=== PATIENT | male | born 1945 | race Caucasian/White ===

== ENCOUNTER → 2017-05-17 | Day surgery (SDC) | payer MEDICARE ==
[~2017-05-17] MED LIST: CEFTRIAXONE SOD 1 GM VIAL ONE; DEXAMETHASONE SOD PHOS INJ 4 MG/ML VIAL ONE; EPHEDRINE SULFATE INJ 50 MG/10 ML SYR ONE; FENTANYL CITRATE/PF 100MCG/2 ML INJ ONE; FUROSEMIDE INJ 10 MG/ML 4 ML VIAL ONE; GENTAMICIN 80MG/NS 100 ML 200 ML IV ONE; GLIMEPIRIDE2 MG PO; LIDOCAINE HCL 2% LOCAL INJ 5 ML SDV VIAL INJ ONE; LOSARTAN POTAS100 MG PO; MIDAZOLAM HCL 2 MG/2 ML VIAL ONE; ONDANSETRON HCL INJ 2 MG/ML VIAL ONE; PRAVASTATIN SOD40 MG PO; PROPOFOL IV EMULSION 10 MG/ML 20 ML VIAL ONE; RESTORIL30 MG PO; SEVOFLURANE INHAL SOLN 250 ML PEN BTL ONE; ZESTORETIC 20-1 EACH PO
--- OUTSIDE RECORDS SUMMARY | 2017-05-17 10:10 | XMS REPORT | Clinical Summary ---
Author Author [facility] Organization [facility] Address Unknown Phone Unavailable Care Team Providers Care Turf Keeper Name Role Phone James Draper MD PCP Allergies Not on File Current Medications Not on file Active Problems Not on file Encounters Date Type Specialty Care Team Description 05/04/2017 [facility] Felton Strickland, Pre-operative Encounter cardiovascular examination 05/04/2017 [facility] Felton Strickland, Pre-operative Orders cardiovascular examination 05/02/2017 [facility] Felton Strickland, Benign localized Encounter hyperplasia of prostate with urinary retention; Elevated prostate specific antigen (PSA) 05/02/2017 [facility] Radiology Felton Strickland, Benign localized Encounter hyperplasia of prostate with urinary retention; Elevated prostate specific antigen (PSA) 04/28/2017 [facility] Felton Strickland Benign localized Orders hyperplasia of prostate with urinary retention (Primary Dx); Elevated prostate specific antigen (PSA) after 05/16/2016 Social History Tobacco Use Types Packs/Day Years Used Date Never Assessed Sex Assigned at Date Recorded Not on file Last Filed Vital Signs Not on file Plan of Treatment Health Maintenance Due Date Last Done Comments COLONOSCOPY 1994 ZOSTER VACCINE 2004 PNEUMOCOCCAL 2009 POLYSACCHARIDE VACCINE AGE 65 AND OVER PNEUMOCOCCAL-13 2009 INFLUENZA VACCINE 09/27/2016 Results * ECG 12 lead (05/04/2017 4:32 PM) Component Value Ref Range Ventricular rate 58 Atrial rate 58 WA interval 156 QRSD interval 80 QT interval 400 QTC interval 392 P axis 1 54 QRS axis 1 21 T wave axis 48 EKG impression Sinus bradycardia-Otherwise normal ECG-In automated comparison with ECG of 29-JUL-2014 17:41,-No significant change was found- Specimen Performing Laboratory [facility] [address] [place] [address] * XR Chest 2 Vw (05/04/2017 4:29 PM) Specimen Performing Laboratory [facility] [address] [place] [id number] Narrative EXAMINATION:XR CHEST 2 VW CLINICAL HISTORY:Z01.810 Encounter for preprocedural cardiovascular examination COMPARISON:None. IMPRESSION: 1.Lungs are clear. 2.Normal heart size. 3.Moderate thoracic degenerative osteophytes. [facility]-[id number] Procedure Note Interface, Radiology Results Incoming - 05/04/2017 4:33 PM RECORD PRESSMAN EXAMINATION: XR CHEST 2 VW CLINICAL HISTORY: Z01.810 Encounter for preprocedural cardiovascular examination COMPARISON: None. IMPRESSION: 1. Lungs are clear. 2. Normal heart size. 3. Moderate thoracic degenerative osteophytes. [facility]-[id number] * US Renal (05/02/2017 1:09 PM) Specimen Performing Laboratory [address] [address] Narrative EXAMINATION:US RENAL CLINICAL HISTORY:N40.1 Benign prostatic hyperplasia with lower urinary tract symptoms, R97.20 Elevated prostate specific antigen (PSA), N40.1 R97.2 COMPARISON:None. Impression: Transverse and longitudinal sonographic images were obtained through the renal fossae and bladder. 1. The right kidney ovcobdwz45.3 x 7.1 cm and left kidney 10.6 x 5.2 cm.. 2.The kidneys demonstrate a normal sonographic appearance without hydronephrosis or perinephric fluid. 3.The bladder appears normal. Prevoid bladder volume is 115 cc. Postvoid is estimated at 3 cc. 4. The prostate moderate measures at least 4.0 x 4.1 x 4.0 cm. [facility]-[id number] Procedure Note Interface, Radiology Results Incoming - 05/02/2017 5:11 PM RECORD PRESSMAN EXAMINATION: US RENAL CLINICAL HISTORY: N40.1 Benign prostatic hyperplasia with lower urinary tract symptoms, R97.20 Elevated prostate specific antigen (PSA), N40.1 R97.2 COMPARISON: None. Impression: Transverse and longitudinal sonographic images were obtained through the renal fossae and bladder. 1. The right kidney measures 10.3 x 7.1 cm and left kidney 10.6 x 5.2 cm.. 2. The kidneys demonstrate a normal sonographic appearance without hydronephrosis or perinephric fluid. 3. The bladder appears normal. Prevoid bladder volume is 115 cc. Postvoid is estimated at 3 cc. 4. The prostate moderate measures at least 4.0 x 4.1 x 4.0 cm. [id number] * US Prostate (05/02/2017 1:08 PM) Specimen Performing Laboratory [facility] [address] [place] [address] Narrative Title:Prostate ultrasound. Reason for exam:N40.1 Benign prostatic hyperplasia with lower urinary tract symptoms, R97.20 Elevated prostate specific antigen (PSA), N40.1 R97.2 Comparison studies: None. Technique: 43 ultrasound images were obtained in sagittal and coronal projection. IMPRESSION: The prostate gland is enlarged measuring 5.91 cm x 4.81 x 4.17 cm for total volume of 62 mL. There is poor differentiation between peripheral and central zones. Heterogeneity of the central zone would be most consistent with prostatic hypertrophy. Prostate gland contour is irregular on the left side. The possibility of peripheral zone nodule or neoplasm is suspected and would be best evaluated by biopsy or MRI scan. [facility]-[id number] Procedure Note Interface, Radiology Results Incoming - 05/02/2017 5:27 PM RECORD PRESSMAN Title:Prostate ultrasound. Reason for exam:N40.1 Benign prostatic hyperplasia with lower urinary tract symptoms, R97.20 Elevated prostate specific antigen (PSA), N40.1 R97.2 Comparison studies: None. Technique: 43 ultrasound images were obtained in sagittal and coronal projection. IMPRESSION: The prostate gland is enlarged measuring 5.91 cm x 4.81 x 4.17 cm for total volume of 62 mL. There is poor differentiation between peripheral and central zones. Heterogeneity of the central zone would be most consistent with prostatic hypertrophy. Prostate gland contour is irregular on the left side. The possibility of peripheral zone nodule or neoplasm is suspected and would be best evaluated by biopsy or MRI scan. [facility]-[id number] after 05/16/2016 Insurance Payer Benefit Subscriber ID Type Phone Address Plan / Group MEDICARE MEDICARE xxxxxxxxxx Medicare [place], [place] PART A AND B
--- NOTE | 2017-05-17 15:55 | Operative Report ---
DATE OF PROCEDURE: May 17, 2017 PREOPERATIVE DIAGNOSES 1. Benign prostatic hypertrophy, rule out carcinoma of the prostate. 2. Abnormal prostate specific antigen. 3. Markedly enlarged prostate. POSTOPERATIVE DIAGNOSES 1. Benign prostatic hypertrophy, rule out carcinoma of the prostate. 2. Abnormal prostate specific antigen. 3. Markedly enlarged prostate. OPERATION 1. Transrectal ultrasound of the prostate. 2. Transrectal ultrasound-guided needle biopsies. 3. Cystourethroscopy. 4. Kaur catheter placement. SENIOR DATA QUALITY ANALYST: Dr. Guo. ANESTHETIC: General. Mr. Russo is a 71-year-old male who was referred by Dr. Brain Draper with a chief complaint of lower impact obstructive symptoms and an abnormal PSA. Rectal exam showed markedly enlarged prostate gland. This patient was placed on the table in the lithotomy position and was prepped and draped in a sterile manner after satisfactory anesthesia. Transrectal ultrasound of the prostate was performed and the prostate measured 4.37 x 4.05 x 4.45 with a total volume of 41.25 mL. Both seminal vesicles were unremarkable. Transrectal ultrasound-guided needle biopsies were obtained from the hypoechoic area and also from the normal-appearing prostate gland to map it for any multifocal carcinoma. There was a hypoechoic area that measured 1.55 x 1.50 on the right peripheral zone. This patient was then prepped and draped in a sterile manner. Cystourethroscopy was performed and it was noted that the urethra was normal. The prostatic urethra was about 5 cm long, bilobar and occlusive. Cystoscopy was then performed using both right angle and Foroblique lens, and it was noted that the bladder mucosa was normal with no evidence of gross tumor pathology or any papillar lesions. Both ureteral orifices were seen and were within normal position, configuration efflux. The bladder wall was normal. The bladder was drained. The cystoscope was removed. The 16-[place] Kaur catheter was placed. He is to return to the office tomorrow for the Kaur catheter removal. Discharge medication was Levaquin 500 mg once a day for one week, Ultracet tablets one every 6 hours p.r.n. and was given 20. Job#: [id number]
== END | disposition home or self-care (01) ==
LOC: OR 10:08
PROVIDERS: ATTEND Specialist
DX: N40.1 Benign prostatic hyperplasia with lower urinary tract symptoms (principal); N13.8 Other obstructive and reflux uropathy; N41.0 Acute prostatitis; I10 Essential (primary) hypertension; E11.9 Type 2 diabetes mellitus without complications
CPT/HCPCS: 36415; 52000; 55700; 76872; 76942; 82948; 88305; 88342; J0696; J1100; J1580; J1940; J2001; J2250; J2405